=== PATIENT | female | born 1955 | race Caucasian/White ===

== ENCOUNTER → 2021-06-14 15:11 | Outpatient (CLI) | payer OTHER, SELFPAY ==
[2021-06-14 16:11] LABS: COVID19 -Nasal RAPID Negative (Negative)
== END ==
PROVIDERS: PCP Family Medicine; Referring Provider Specialist; Visit Provider Specialist
DX: Z01.812 Encounter for preprocedural laboratory examination (principal); Z20.822 Contact with and (suspected) exposure to COVID-19
CPT/HCPCS: 87635

== ENCOUNTER 2021-06-15 08:47 | Day surgery (SDC) | payer OTHER, SELFPAY ==
[2021-06-14 08:16] VITALS: BMI 24.1
[2021-06-15] VITALS (14 sets, daily range): BP systolic 94–148; BP diastolic 67–86; PULSE 51–77; RESP 12–20; TEMP 36.3–36.6; O2SAT 12–100; BMI 24.1
--- NOTE | 2021-06-15 09:19 | SUR.OPER ---
Lithotomy on padded OR bed, head on pillow, arms secured on padded arm boards at <90 degrees abduction. Legs secured in padded yellow fins stirrups.
[2021-06-15] MEDS: LACTATED RINGERS 1,000 ML 84 ML IV (09:24)
--- NOTE | 2021-06-15 09:24 | PM.PREOP ---
Pre-operative Note COVID-19 COVID-19 status: Negative Result date/Date tested (Pos, Neg/Pending): 06/14/21 Interval Note History & Physical reviewed/Exam performed by Physician: Yes Changes to H&P: No
[2021-06-15] MEDS: CLINDAMYCIN 900 MG/50 ML PIGGYBACK 50 MG IV (09:55)
[2021-06-15] MEDS: BUPIVACAINE 0.5% (PF) 30 ML, EPINEPHrine 0.15 MG INJ (10:02)
--- NOTE | 2021-06-15 11:04 | P.OP_ITS ---
Operative Date/Time/Diagnoses Date of procedure: 06/15/21 Time of procedure: 11:04 Pre-op diagnosis: Symptomatic uterovaginal prolapse cystocele predominant Post-op diagnosis: same Procedure & Clinicians Procedure: Anterior and posterior repair with sacrospinous ligament fixation and perineoplasty Same procedure as scheduled: Yes Indications: Symptomatic uterovaginal prolapse with gaping introitus Surgeon: Serene Greco Click Yes if Unassisted: Yes Anesthesia Type: General Operative Notes Findings: Cystocele prolapsing out of the hymen, uterine prolapse to within 1 cm of the hymen. Gaping introitus. Minimal rectocele. Closure Type: primary Specimen(s): none sent Applied: catheter (Chance) and other (Vaginal packing) Estimated Blood Loss (mL): 20 Blood products transfused: none Procedure in detail: Patient was brought to the operating room where she was placed in yellowfin stirrups and prepped and draped in the usual sterile fashion. A check system was reviewed prior to the beginning of the case. Pulsatile stockings were in place and functional throughout the case. Warming was in place. 900 mg of clindamycin IV were in prior to beginning of the case. A Chance catheter was placed. A dilute solution of 1% lidocaine with epinephrine was injected over this cystocele. An incision was made over the cystocele and the incision dissected laterally. Plicating sutures were made over the cystocele with 0 Vik ryl suture. The incision was closed with 2-0 Vicryl suture. Next a wedge shaped tissue was taken out of the posterior vaginal opening. The area over the rectocele was injected with a dilute solution of 0.5% Marcaine with epinephrine. An incision was made over the rectocele with the scalpel. The dissection was undertaken laterally. 0 Prolene suture with the Capio passer was placed through the uterosacral ligament on the right side x2 and sutured to the underside of the cervix. A finger was placed in the rectum to be sure there were no sutures placed through the rectal mucosa. The uterosacral sutures were tightened down and the vaginal incision was closed with 2-0 Vicryl suture. The perineal body was built up with interrupted 2 0 Vicryl sutures. The skin was closed with the 2-0 Vicryl suture. Vaginal packing was placed in the vagina and the Chance left in place. Counts of instruments and sponges were correct. The patient went to recovery room in good condition. Complications: none Post-operative Condition: stable Disposition: observation (Will remove packing and Chance in 6 hours ) Plan for aftercare: Home after postvoid residual after packing and Chance removed
[2021-06-15] MEDS: ACETAMINOPHEN 325 MG TABLET 650 MG PO (13:38)
[2021-06-15] MEDS: OXYCODONE IR 5 MG TABLET PO ×2 (13:39→17:56)
[2021-06-15] MEDS: LACTATED RINGERS 1,000 ML 100 ML IV (13:40)
[2021-06-15] MEDS: IBUPROFEN 600 MG TABLET PO (15:11)
--- NOTE | 2021-06-15 15:47 | PM.DS.1 ---
History of Present Illness History of Present Illness Date Patient Seen: 06/15/21 Time Patient Seen: 15:47 Chief complaint: A&P Repair w/SSLF OPB Narrative: Patient is status post anterior and posterior repair with sacrospinous ligament fixation and perineoplasty. Patient denies any nausea. Her pain is under control. Her Chance catheter and vaginal packing removed. Discharge Providers Provider Discharge Date: 06/15/21 Primary care physician: Ivan Chun MD Discharge provider: Serene Greco MD Summary Hospital Course Discharge Diagnosis: Symptomatic uterovaginal prolapse status post anterior and posterior repair with sacrospinous ligament fixation and perineoplasty Hospital Course: Patient underwent anterior and posterior repair with sacrospinous ligament fixation and perineoplasty today. She is feeling well. She will have a postvoid residual check after Chance and vaginal packing removed and will be discharged afterwards. Status at Discharge Cognitive/behavioral status at discharge: oriented Functional status at discharge: independent ambulation Overall status at discharge: patient is progressing back to baseline Time Spent with Patient Time spent: Less than 30 minutes Exam Vital Signs (past 8 hours): - 06/15/21 09:04 06/15/21 10:56 06/15/21 11:01 Temperature 97.4 F L 97.5 F L Pulse Rate 66 68 60 Respiratory Rate 16 16 16 Blood Pressure 148/86 H 100/72 107/71 Pulse Oximetry 100 96 12 L 06/15/21 11:06 06/15/21 11:11 06/15/21 11:16 Temperature 97.3 F L Pulse Rate 61 58 L 64 Respiratory Rate 12 15 14 Blood Pressure 110/75 94/71 114/77 Pulse Oximetry 98 96 99 06/15/21 11:21 06/15/21 11:26 06/15/21 11:55 Temperature 97.3 F L Pulse Rate 57 L 57 L 51 L Respiratory Rate 16 15 20 Blood Pressure 123/81 109/76 134/80 Pulse Oximetry 99 99 100 06/15/21 12:39 06/15/21 12:48 06/15/21 13:17 Temperature Pulse Rate 66 77 68 Respiratory Rate 18 16 16 Blood Pressure 131/77 122/77 126/79 Pulse Oximetry 98 99 98 06/15/21 14:17 Temperature 97.9 F Pulse Rate 61 Respiratory Rate 16 Blood Pressure 116/67 Pulse Oximetry 94 Oxygen Delivery Method Room Air Oxygen Flow Rate 0 Narrative Exam Narrative: Abdomen is soft, nontender. External sutures are intact. Chance removed. Vaginal packing removed and had minimal vaginal bleeding on it. [facility] Medical History (Updated 03/10/21 @ 19:27 by Becca Morales) Psoriasis (~2009) Vision disorder Surgical History (Updated 06/15/21 @ 11:01 by Serene Greco MD) Anesthesia History of colonoscopy (~2017) Family History (Updated 03/10/21 @ 19:29 by Becca Morales) Father Diabetes mellitus History of heart disease Grandfather Cancer Grandmother History of heart disease Grandfather History of heart disease Social History household members: spouse Smoking Status: Former smoker Discharge Assessment & Plan Assessment and Plan Assessment: Postoperative anterior and posterior repair with sacrospinous ligament fixation doing well. Plan of Treatment: Home after bladder trial. Discharge Plan Discharge Plan Patient Disposition: Home Discharge orders & Medications Discharge Orders: Discharge (Order); Ordered 06/15/21 Ordered By: Serene Greco Prescriptions: Continued oxycodone 5 mg tablet 5 mg PO Q4H PRN (Reason: pain) Qty: 20 0RF Follow up/Referrals: Ivan Chun MD [Primary Care Provider] - Serene Greco MD [Physician] - 2 Weeks Diet/Activity/Treatments Diet: Regular Activity: Nothing in vagina or lifting over 20 lb for 6 weeks Skin/Wound/Dressing Care Report to your healthcare provider any signs of infection, such as:: chills, fever and increased pain Visit Report/Discharge Packet Stand Alone Forms: Surgery Discharge Discharge Data Primary Care Provider: Ivan Chun Attending Provider: Serene Greco
[2021-06-15] MEDS: INFLUENZA HD VACCINE 0.7 ML SYRINGE IM (16:56)
--- NOTE | 2021-06-15 18:16 | PC.NURSE ---
Patient arrived from PACU at approximately 1230 A&Ox4, pleasant. Lara in place, VSS, afebrile on RA. She reports mild cramping pain, no bleeding per alycia pad. She denies n/v. She reports good pain relief with PRN tylenol, oxycodone and ibuprofen this afternoon. LR @ 100ml/hr. Ambulating with steady gait to the bathroom and taking light PO snacks. Skin WNL, no abnormalities noted. Foist at bedside this evening dc'd lara at approximately 1630. She is able to void at about 1730 and again about 1800. She voids 250 and PVR =70ml. Per MD orders she is able to discharge if PVR <100. She acknowledges and verbalizes understanding of discharge instructions, medications and follow up appointments. She is escorted via wheelchair at 1815 to private vehicle with daughter Radha with all of her belongings.
== END 2021-06-15 18:15 | disposition home or self-care (01) ==
LOC: OR 08:49 → AC 08:52
PROVIDERS: PCP Family Medicine; Referring Provider Specialist; Visit Provider Specialist
PROC: (CPT 57282; principal; 2021-06-15 09:45)
DX: N81.2 Incomplete uterovaginal prolapse (principal); Z23 Encounter for immunization
CPT/HCPCS: 57282; 57260; 90471; 90662; J0171; J1100; J1885; J2405; J2704; J3010